=== PATIENT | female | born 1995 | race Asian ===

== ENCOUNTER 2017-03-17 10:15 | Emergency (ER) | payer OTHER ==
[~2017-03-17] VITALS: Ht 154.9 cm; Wt 54.4 kg
--- NOTE | 2017-03-17 10:55 | EKG ---
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
[2017-03-17 11:21] LABS: BASO % 0 % (0-3); EOS # 0.1 x10^3/uL (0.0-0.7); EOS % 1 % (0-3); HEMATOCRIT 39.8 % (36.0-47.0); HEMOGLOBIN 13.6 g/dL (12.0-15.5); LYMPH # 3.1 x10^3/uL (1.0-4.8); LYMPH % 33 % (24-48); MEAN CORPUSCULAR HEMOGLOBIN 30 pg (25-35); MEAN CORPUSCULAR HGB CONC 34 g/dL (31-37); MEAN CORPUSCULAR VOLUME 87 fL (79-100); MONO # 0.5 x10^3/uL (0.0-1.1); MONO % 6 % (0-9); NEUT # 5.6 x10^3uL (1.8-7.7); NEUT % 60 % (31-73); PLATELET COUNT 229 x10^3/uL (140-400); RED BLOOD COUNT 4.56 x10^6/uL (3.50-5.40); WHITE BLOOD COUNT 9.3 x10^3/uL (4.0-11.0)
[2017-03-17 11:42] LABS: ALBUMIN 3.7 g/dL (3.4-5.0); ALBUMIN/GLOBULIN RATIO 1.1 (1.0-1.7); CALCIUM 8.4 mg/dL (8.5-10.1); CREATININE 0.6 mg/dL (0.6-1.0); GFR 127.5; POTASSIUM 4.1 mmol/L (3.5-5.1); TOTAL BILIRUBIN 1.1 mg/dL (0.2-1.0); TOTAL PROTEIN 7.2 g/dL (6.4-8.2)
--- NOTE | 2017-03-17 12:00 | ED.ADGEN ---
Past History Past Medical History: Asthma Past Surgical History: No Surgical History Alcohol Use: Rarely Drug Use: None Adult General Chief Complaint Chief Complaint CHEST PAIN FOR 2 1/2 MONTHS HPI HPI Patient is a 21 year old F who presents with Chest pain. Pt states L sided sharp pain for 2 1/2 months and now worse for past 2 days. Some shortness of breath and using asthma inhaler more lately. Taking ASA for pain but still continues Pt denies abdominal pain, no leg pain or swelling. Pt states has had nonproductive cough, no hemoptysis. No F/C Review of Systems Review of Systems Constitutional: Denies fever or chills Eyes: Denies change in visual acuity, redness, or eye pain HENT: Denies nasal congestion or sore throat Respiratory: chest pain and shortness of breath Cardiovascular: chest pain, no syncope GI: Denies abdominal pain, nausea, vomiting, bloody stools or diarrhea : Denies dysuria or hematuria Musculoskeletal: Denies back pain or joint pain Integument: Denies rash or skin lesions Neurologic: Denies headache, focal weakness or sensory changes Current Medications Current Medications Current Medications Medications (Trade) Dose Ordered Sig/Elizabeth Start Time Stop Time Status Last Admin Dose Admin Iohexol (Omnipaque 300 Mg/ml) 75 ml 1X ONCE 03/17/17 12:30 03/17/17 12:31 DC 03/17/17 12:11 75 ML Ketorolac Tromethamine (Toradol) 30 mg 1X ONCE 03/17/17 13:15 03/17/17 13:16 DC 03/17/17 13:06 30 MG Allergies Allergies Allergies Coded Allergies Type Severity Reaction Last Updated Verified amoxicillin Allergy Unknown 06/22/16 Yes Physical Exam Physical Exam Constitutional: Well developed, well nourished, no acute distress, non-toxic appearance. HENT: Normocephalic, atraumatic, bilateral external ears normal, oropharynx moist, no oral exudates, nose normal. Eyes: PERRL, EOMI, conjunctiva normal, no discharge. Neck: Normal range of motion, no tenderness, supple, no stridor. Cardiovascular:Heart rate regular rhythm, no murmur Lungs & Thorax: Bilateral breath sounds clear to auscultation, reproducable tenderness to L chest and L upper back on palpation Abdomen: Bowel sounds normal, soft, no tenderness, no masses, no pulsatile masses. Skin: Warm, dry, no erythema, no rash. Back: No tenderness, no CVA tenderness. Extremities: No tenderness, no cyanosis, no clubbing, ROM intact, no edema. Neurologic: Alert and oriented X 3, normal motor function, normal sensory function, no focal deficits noted. Psychologic: Affect normal, judgement normal, mood normal. Current Patient Data Vital Signs Vital Signs Date Time Temp Pulse Resp B/P (MAP) Pulse Ox O2 Delivery O2 Flow Rate FiO2 03/17/17 13:15 76 102/61 (75) 03/17/17 10:24 98.2 16 100 Room Air Lab Results Laboratory Tests Test 03/17/17 11:07 White Blood Count 9.3 x10^3/uL (4.0-11.0) Red Blood Count 4.56 x10^6/uL (3.50-5.40) Hemoglobin 13.6 g/dL (12.0-15.5) Hematocrit 39.8 % (36.0-47.0) Mean Corpuscular Volume 87 fL (79-100) Mean Corpuscular Hemoglobin 30 pg (25-35) Mean Corpuscular Hemoglobin Concent 34 g/dL (31-37) Red Cell Distribution Width 13.0 % (11.5-14.5) Platelet Count 229 x10^3/uL (140-400) Neutrophils (%) (Auto) 60 % (31-73) Lymphocytes (%) (Auto) 33 % (24-48) Monocytes (%) (Auto) 6 % (0-9) Eosinophils (%) (Auto) 1 % (0-3) Basophils (%) (Auto) 0 % (0-3) Neutrophils # (Auto) 5.6 x10^3uL (1.8-7.7) Lymphocytes # (Auto) 3.1 x10^3/uL (1.0-4.8) Monocytes # (Auto) 0.5 x10^3/uL (0.0-1.1) Eosinophils # (Auto) 0.1 x10^3/uL (0.0-0.7) Basophils # (Auto) 0.0 x10^3/uL (0.0-0.2) D-Dimer (Nelsy) 2.93 mg/L (0.00-0.50) H Maternal Serum HCG Beta Subunit < 1 mIU/mL (0-6) Sodium Level 141 mmol/L (136-145) Potassium Level 4.1 mmol/L (3.5-5.1) Chloride Level 108 mmol/L (98-107) H Carbon Dioxide Level 24 mmol/L (21-32) Anion Gap 9 (6-14) Blood Urea Nitrogen 14 mg/dL (7-20) Creatinine 0.6 mg/dL (0.6-1.0) Estimated GFR (Cockcroft-Gault) 127.5 BUN/Creatinine Ratio 23 (6-20) H Glucose Level 90 mg/dL (70-99) Calcium Level 8.4 mg/dL (8.5-10.1) L Total Bilirubin 1.1 mg/dL (0.2-1.0) H Aspartate Amino Transferase (AST) 15 U/L (15-37) Alanine Aminotransferase (ALT) 13 U/L (14-59) L Alkaline Phosphatase 112 U/L (46-116) Creatine Kinase 71 U/L (26-192) Creatine Kinase MB (Mass) 0.5 ng/mL (0.0-3.6) Creatine Kinase MB Relative Index 0.7 % (0-4) Troponin I Quantitative < 0.017 ng/mL (0-0.055) Total Protein 7.2 g/dL (6.4-8.2) Albumin 3.7 g/dL (3.4-5.0) Albumin/Globulin Ratio 1.1 (1.0-1.7) EKG EKG NSR , rate 87, nonspecific ST T wave changes, no stemi, no acute ischemic changes Radiology/Procedures Radiology/Procedures Laboratory Tests Test 03/17/17 11:07 White Blood Count 9.3 x10^3/uL Red Blood Count 4.56 x10^6/uL Hemoglobin 13.6 g/dL Hematocrit 39.8 % Mean Corpuscular Volume 87 fL Mean Corpuscular Hemoglobin 30 pg Mean Corpuscular Hemoglobin Concent 34 g/dL Red Cell Distribution Width 13.0 % Platelet Count 229 x10^3/uL Neutrophils (%) (Auto) 60 % Lymphocytes (%) (Auto) 33 % Monocytes (%) (Auto) 6 % Eosinophils (%) (Auto) 1 % Basophils (%) (Auto) 0 % Neutrophils # (Auto) 5.6 x10^3uL Lymphocytes # (Auto) 3.1 x10^3/uL Monocytes # (Auto) 0.5 x10^3/uL Eosinophils # (Auto) 0.1 x10^3/uL Basophils # (Auto) 0.0 x10^3/uL D-Dimer (Nelsy) 2.93 mg/L Maternal Serum HCG Beta Subunit < 1 mIU/mL Sodium Level 141 mmol/L Potassium Level 4.1 mmol/L Chloride Level 108 mmol/L Carbon Dioxide Level 24 mmol/L Anion Gap 9 Blood Urea Nitrogen 14 mg/dL Creatinine 0.6 mg/dL Estimated GFR (Cockcroft-Gault) 127.5 BUN/Creatinine Ratio 23 Glucose Level 90 mg/dL Calcium Level 8.4 mg/dL Total Bilirubin 1.1 mg/dL Aspartate Amino Transf (AST/SGOT) 15 U/L Alanine Aminotransferase (ALT/SGPT) 13 U/L Alkaline Phosphatase 112 U/L Creatine Kinase 71 U/L Creatine Kinase MB (Mass) 0.5 ng/mL Creatine Kinase MB Relative Index 0.7 % Troponin I Quantitative < 0.017 ng/mL Total Protein 7.2 g/dL Albumin 3.7 g/dL Albumin/Globulin Ratio 1.1 [][place] [address] IMAGING REPORT Signed PATIENT: JIMENA WOODY ACCOUNT: [id number] : 1995 LOCATION: ER AGE: 21 SEX: F EXAM STATUS: REG ER ORD. PHYSICIAN: MAXIMILIANO ZENG MD REASON: CHEST PAIN R/O PE PROCEDURE: CT ANGIOGRAPHY CHEST CT Pulmonary arteriogram: Indication:Chest. Shortness of breath for 2 weeks Date of Exam:03/17/17 . Comparison:None available Technique: Contiguous helical acquisitions are obtained through the chest during intravenous administration of 75 cc Omnipaque 300 . Sagittal and Coronal MIP images were obtained and reviewed. Findings: The pulmonary arteries are negative for filling defects to suggest pulmonary emboli. No hilar or mediastinal abnormalities are noted. No pericardial pathology is noted and the aorta appears unremarkable. The lungs are clear without infiltrate or mass. The pleural surfaces are smooth and no pleural fluid is seen. The visualized structures of the upper abdomen are unremarkable. Bones are normal. Impression: 1. CT pulmonary arteriography fails to reveal pulmonary emboli or other significant pathology. PQRS Compliance Statement: One or more of the following individualized dose reduction techniques were utilized for this examination: 1. Automated exposure control 2. Adjustment of the mA and/or kV according to patient size 3. Use of iterative reconstruction technique DICTATED AND SIGNED BY: ALEJANDRA LIN MD DATE: 03/17/17 1222 CC: PANTERA HO; MAXIMILIANO ZENG MD ~ [place] [address] IMAGING REPORT Signed PATIENT: JIMENA WOODY ACCOUNT: [id number] : 1995 LOCATION: ER AGE: 21 SEX: F EXAM STATUS: REG ER ORD. PHYSICIAN: MAXIMILIANO ZENG MD REASON: chest pain PROCEDURE: CHEST PA & LATERAL Indication: Chest pain. Time of exam 11:32 AM No prior studies are available for comparison. FINDINGS: The heart size is normal. The lungs are clear. No pleural effusion or pneumothorax is identified. The pulmonary vascularity is normal. IMPRESSION: No acute abnormality detected. DICTATED AND SIGNED BY: BATSHEVA BOWERS MD DATE: 03/17/17 1243 CC: PANTERA HO; MAXIMILIANO ZENG MD ~ Impressions: NO PE, aorta ok Course & Med Decision Making Course & Med Decision Making Pertinent Labs and Imaging studies reviewed. (See chart for details) []Pt elevated Ddimer and obtained CT chest --no pe, no tenderness or swelling in legs Pt clinically tenderness chest wall and has been there for 2 1/2 months, no wheezing, EKG ok Discussed with pt to use NSAIDS for pain and follow up with PCP Final Impression Final Impression Chest Pain[] Problems: Dragon Disclaimer Dragon Disclaimer This electronic medical record was generated, in whole or in part, using a voice recognition dictation system. MAXIMILIANO ZENG MD March 17, 2017 12:00
[2017-03-17] MEDS ORDERED: IOHEXOL 300 MG/ML 75 ML VIAL. IV ONE (12:30)
--- NOTE | 2017-03-17 12:31 | RAD ---
CT Pulmonary arteriogram: Indication:Chest. Shortness of breath for 2 weeks Date of Exam:03/17/17 . Comparison:None available Technique: Contiguous helical acquisitions are obtained through the chest during intravenous administration of 75 cc Omnipaque 300 . Sagittal and Coronal MIP images were obtained and reviewed. Findings: The pulmonary arteries are negative for filling defects to suggest pulmonary emboli. No hilar or mediastinal abnormalities are noted. No pericardial pathology is noted and the aorta appears unremarkable. The lungs are clear without infiltrate or mass. The pleural surfaces are smooth and no pleural fluid is seen. The visualized structures of the upper abdomen are unremarkable. Bones are normal. Impression: 1. CT pulmonary arteriography fails to reveal pulmonary emboli or other significant pathology. PQRS Compliance Statement: One or more of the following individualized dose reduction techniques were utilized for this examination: 1. Automated exposure control 2. Adjustment of the mA and/or kV according to patient size 3. Use of iterative reconstruction technique
--- NOTE | 2017-03-17 12:46 | RAD ---
Indication: Chest pain. Time of exam 11:32 AM No prior studies are available for comparison. FINDINGS: The heart size is normal. The lungs are clear. No pleural effusion or pneumothorax is identified. The pulmonary vascularity is normal. IMPRESSION: No acute abnormality detected.
[2017-03-17 13:15] VITALS: BP 102/61
[2017-03-17] MEDS ORDERED: KETOROLAC 30 MG/ML VIAL. IV ONE (13:15)
== END 2017-03-17 13:23 | disposition home or self-care (01) ==
LOC: ER 10:15
DX: R07.89 Other chest pain (principal); R06.02 Shortness of breath; J45.909 Unspecified asthma, uncomplicated; Z88.1 Allergy status to other antibiotic agents
CPT/HCPCS: 36415; 71020; 71275; 80053; 82553; 84484; 84702; 85027; 85379; 93005; 96374; 99285; J1885; Q9967

== ENCOUNTER 2017-03-28 21:07 | Emergency (ER) | payer OTHER ==
[~2017-03-28] VITALS: Ht 154.9 cm; Wt 52.2 kg
--- NOTE | 2017-03-28 21:36 | EKG ---
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
--- NOTE | 2017-03-28 22:08 | ED.ADGEN ---
Past History Past Medical History: Asthma Past Surgical History: No Surgical History Alcohol Use: Occasionally Additional Alcohol Information: pt drank 2 wine coolers and 3 shots of [place] Drug Use: None Adult General HPI HPI Patient is a 21-year-old woman, with history of asthma, who presents to the emergency department with complaint of sudden onset of chest pain while eating pizza after having "a few drinks". Patient states that she was at home with her , took a few bites of pizza when she began feeling a stabbing chest pain on the left side of her chest. She denies any choking, coughing, or any inciting event other than swallowing. Patient states that she became short of breath, being hyperventilating, and experienced numbness and tingling in her hands. She states that she then took a few puffs of her inhaler, which did not help, that point EMS was called. Patient has experienced what she describes as the same chest pain previously. She states she's also been experiencing pain in the left side of her head, and her left arm in her left leg as well. Patient has been experiencing this chest pain intermittently over the past 2 and half months. She was seen in the emergency department on a eighth, at that time she received an evaluation including a CT of the chest which was negative for pulmonary embolus. Patient states that she followed up with her primary care provider last week, after a diagnosis of costochondritis was made, and was given additional medications by her primary care provider and referral for physical therapy. She states that the pain on her left side has been persistent , but denies any injuries, states pain is worse with motion both in the arm, leg , and in the chest. Also worse with deep inspiration. No recent travel or surgery, no history of DVT or PE in herself or family members, no swelling of the extremities. At this time she states she is feeling much better, the shortness of breath is fully resolved, as is the tingling, she denies any weakness, any headache, any nausea or vomiting, any urinary complaints. She is not taking any medication for pain today. Review of Systems Review of Systems Constitutional: Denies fever or chills [] Eyes: Denies change in visual acuity, redness, or eye pain [] HENT: Denies nasal congestion or sore throat [] Respiratory: Denies cough, complaining of shortness of breath associated with sharp left-sided chest pain. Also expressing pain in the left arm, left leg, and left side of her face. Cardiovascular: No additional information not addressed in HPI [] GI: Denies abdominal pain, nausea, vomiting, bloody stools or diarrhea [] : Denies dysuria or hematuria [] Musculoskeletal: Denies back pain or joint pain [] Integument: Denies rash or skin lesions [] Neurologic: Denies headache, focal weakness or sensory changes [] Endocrine: Denies polyuria or polydipsia [] Current Medications Current Medications Current Medications Medications (Trade) Dose Ordered Sig/Elizabeth Start Time Stop Time Status Last Admin Dose Admin Naproxen (Naprosyn) 500 mg 1X ONCE 03/28/17 22:15 03/28/17 22:17 DC 03/28/17 22:06 500 MG Allergies Allergies Allergies Coded Allergies Type Severity Reaction Last Updated Verified amoxicillin Allergy Unknown 06/22/16 Yes Physical Exam Physical Exam Constitutional: Well developed, well nourished, no acute distress, non-toxic appearance. [] HENT: Normocephalic, atraumatic, bilateral external ears normal, oropharynx moist, no oral exudates, nose normal. [] Eyes: PERRLA, EOMI, conjunctiva normal, no discharge. [] Neck: Normal range of motion, no tenderness, supple, no stridor. [] Cardiovascular:Heart rate regular rhythm, no murmur , S1, S2, no rubs or gallops. Mildly tachycardic. Patient with reproducible left-sided chest pain or pressure. No rashes or lesions identified. No signs of injury. [] Lungs & Thorax: Bilateral breath sounds clear to auscultation [] Abdomen: Bowel sounds normal, soft, no tenderness, no rebound, no rigidity, no guarding, no masses, no pulsatile masses. [] Skin: Warm, dry, no erythema, no rash. [] Back: No tenderness, no CVA tenderness. [] Extremities: Patient with mild tenderness palpation along the entire left arm and left leg, full range of motion, normal in appearance no cyanosis, no clubbing, ROM intact, no edema. Negative Homans sign. [] Neurologic: Alert and oriented X 3, normal motor function, normal sensory function, no focal deficits noted. [] Psychologic: Affect normal, judgement normal, mood normal. [] Current Patient Data Vital Signs Vital Signs Date Time Temp Pulse Resp B/P (MAP) Pulse Ox O2 Delivery O2 Flow Rate FiO2 03/28/17 23:00 97.5 105 18 100/57 (71) 99 Room Air Lab Results Laboratory Tests Test 03/28/17 21:39 POC Urine HCG, Qualitative hcg negative (Negative) EKG EKG EC: Sinus tachycardia, heart rate 109 bpm, contour normality is noted in the anterior septal leads, upright axis, QTC of 465, [place] 162, when compared to ECG from 8016, patient is tachycardic no other significant changes identified. As interpreted by me. [] Radiology/Procedures Radiology/Procedures Test x-ray: Two-view: PA and lateral: Normal cardiopulmonary silhouette, no infiltrates, no effusions, no pneumothorax, no soft tissue or bony abnormalities identified. As interpreted by me. [] Course & Med Decision Making Course & Med Decision Making Pertinent Labs and Imaging studies reviewed. (See chart for details) Patient clinically sober in the emergency department, states pain is resolved at this time except for with palpation of the chest, whereupon pain is reproducible. The soreness on the left side of her body is constant. Review of records reveals the patient was seen in the emergency department on March 17, at that time she received an extensive evaluation for this reported chest pain, per her description, including a CTA of the chest was negative for abnormalities. I did discuss this previous workup with patient and at bedside. This time the patient is feeling well, tachycardia is improving, and receiving several home puffs of her albuterol inhaler, oxygen saturation is 99- 100% on room air, respiratory rate is 18-22 and unlabored. As patient recently had an extensive workup for the same symptoms, I do not believe that repeating this workup would be appropriate at this time, patient and at bedside are agreeable with this approach. I did discuss the serial ECGs with Dr. Salmon of cardiology, aside from mild tachycardia, no other concerning findings identified, he recommends the patient be discharged home, to follow-up in the outpatient setting, his office will contact the patient on Friday to schedule an appointment for an echo as patient's symptoms have been persistent. As stated however the patient has not experienced any syncope, or other concerning symptoms that would prompt additional evaluation and admission hospital at this point. On reevaluation, patient is resting comfortably and remains pain-free, patient ambulated in the emergency department without issue. We did discuss concerning symptoms that prompt return to the emergency department, and importance of follow-up. Patient states she is agreeable with plan to follow-up with her primary care provider and to complete their recommendations for physical therapy, and also the plan to follow-up with cardiology for an outpatient echo. Patient discharged home in stable condition with her with plan as above. Final Impression Final Impression [] Problems: Dragon Disclaimer Dragon Disclaimer This electronic medical record was generated, in whole or in part, using a voice recognition dictation system. Departure: Impression: Primary Impression: Chest pain Disposition: HOME, SELF-CARE Condition: IMPROVED DINORA ARMENDARIZ DO March 28, 2017 22:08
[2017-03-28] MEDS ORDERED: NAPROXEN 500 MG TABLET PO ONE (22:15)
[2017-03-28 23:00] VITALS: BP 100/57
--- NOTE | 2017-03-29 08:03 | RAD ---
Indication: Chest pain since February. Asthma Technique: Two-view chest radiograph was obtained. Comparison is from March 17, 2017. Findings: The lungs are clear. The cardiopulmonary silhouette is within normal limits. There is no pleural effusion. The bony structures are intact. Impression: No acute thoracic findings.
--- NOTE | 2017-04-01 07:44 | EKG ---
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
== END 2017-03-28 23:00 | disposition home or self-care (01) ==
LOC: ER 21:07
DX: R07.89 Other chest pain (principal); R00.0 Tachycardia, unspecified; J45.909 Unspecified asthma, uncomplicated; R06.02 Shortness of breath; R20.2 Paresthesia of skin; R06.4 Hyperventilation; Z88.1 Allergy status to other antibiotic agents
CPT/HCPCS: 71020; 81025; 84703; 93005; 99284

== ENCOUNTER 2017-12-01 00:48 | Emergency (ER) | payer OTHER ==
[~2017-12-01] VITALS: Ht 154.9 cm; Wt 52.2 kg
--- NOTE | 2017-12-01 01:28 | PHYS DOC ---
Past History Past Medical History: Asthma Past Surgical History: No Surgical History Smoking: Non-smoker Alcohol Use: Occasionally Drug Use: None Adult General Chief Complaint Chief Complaint: FLANK PAIN [facility] HPI Patient is a pleasant 22-year-old non female with a normal last menstrual period presents with constipation and left lower quadrant abdominal pain began 2 days ago. Patient is noted decreased frequency and fullness in the left lower quadrant of her abdomen as got progressively worse. She's had no fevers no chills but did have recent strep throat was treated with azithromycin. Patient denies any prior history of nausea vomiting but is nauseated today secondary to the pain in the left lower quadrant. She denies any UTI symptoms, vaginal bleeding, discharge or back pain. She denies any hematuria or difficulty urinating she does admit that although she was thought to be constipated she did have a stool today that was described as soft. She still has persistent constant abdominal pain in the left lower quadrant that does not radiate anywhere and is not worsened by anything other than position. She has not taken any medications [id number] treat her symptoms patient denies any trauma or abuse at home. She further denies any sick contacts, travel outside the country or consumption of raw food handling of reptiles or poultry Review of Systems Review of Systems Constitutional: Denies fever or chills [] Eyes: Denies change in visual acuity, redness, or eye pain [] HENT: Denies nasal congestion or sore throat [] Respiratory: Denies cough or shortness of breath [] Cardiovascular: No additional information not addressed in HPI [] GI: Patient's main complaint is abdominal pain in the left lower quadrant with nausea without vomiting no bloody stools or diarrhea but actual constipation. : Denies dysuria or hematuria [] Musculoskeletal: Denies back pain or joint pain [] Integument: Denies rash or skin lesions [] Neurologic: Denies headache, focal weakness or sensory changes [] Endocrine: Denies polyuria or polydipsia [] All other systems were reviewed and found to be within normal limits, except as documented in this note. Allergies Allergies Allergies Coded Allergies Type Severity Reaction Last Updated Verified amoxicillin Allergy Intermediate 12/01/17 Yes cephalexin Allergy Intermediate 12/01/17 Yes Physical Exam Physical Exam Of the vital signs recorded on the chart at this time within normal limits Constitutional: Well developed, well nourished, no acute distress, non-toxic appearance. Patient is uncomfortable holding the left lower quadrant. [] HENT: Normocephalic, atraumatic, bilateral external ears normal, oropharynx moist, mild erythema noted no tonsillar hypertrophy no oral exudates, nose normal. [] Eyes: PERRLA, EOMI, conjunctiva normal, no discharge. [] Neck: Normal range of motion, no tenderness, supple, no stridor. No anterior lymphadenopathy noted [] Cardiovascular:Heart rate regular rhythm, no murmur [] Lungs & Thorax: Bilateral breath sounds clear to auscultation [] Abdomen: Patient does have tenderness to palpation in the left lower quadrant with no voluntary guarding rebound or organomegaly bowel sounds are normal no Castillo's or McBurney's point tenderness to palpation no external gallego to the abdominal wall. Skin: Warm, dry, no erythema, no rash. [] Back: No tenderness, no CVA tenderness. [] Extremities: full Range of motion normal gait Neurologic: Alert and oriented X 3, normal motor function, normal sensory function, no focal deficits noted. [] Psychologic: Affect normal, judgement normal, mood normal. [] Current Patient Data Vital Signs Vital Signs Date Time Temp Pulse Resp B/P (MAP) Pulse Ox O2 Delivery O2 Flow Rate FiO2 12/01/17 00:48 98.0 88 16 99 Room Air Lab Results Laboratory Tests Test 12/01/17 00:58 POC Urine HCG, Qualitative hcg negative (Negative) EKG EKG [] Radiology/Procedures Radiology/Procedures [] [address] [place] [id number] IMAGING REPORT Signed PATIENT: JIMENA WOODY ACCOUNT: [id number] : 1995 LOCATION: ER AGE: 22 SEX: F EXAM STATUS: REG ER ORD. PHYSICIAN: VERO FRENCH MD REASON: left lower quadrant abdominal pain PROCEDURE: CT ABD PELV W/ IV CONTRST ONLY PQRS Compliance Statement: One or more of the following individualized dose reduction techniques were utilized for this examination: 1. Automated exposure control 2. Adjustment of the mA and/or kV according to patient size 3. Use of iterative reconstruction technique CT ABD PELV W/ IV CONTRST ONLY Clinical Indication: LLQ abdominal pain and Nausea x 2 days, no history of any medical conditions or abdominal surgeries. Comparison: None. Technique: Helical CT imaging of the abdomen and pelvis is performed after 75 cc Omnipaque 300 IV contrast. Oral contrast not given. Findings: Lung bases clear. Liver, gallbladder, spleen, pancreas, adrenal glands, abdominal aorta, and kidneys are normal. Evaluation of bowel may be limited without oral contrast. Stomach unremarkable. No dilated small bowel. Colon is decompressed distally, limiting evaluation. No colon wall thickening is seen. The appendix is normal. No abdominal adenopathy or free fluid. Urinary bladder is normal. Uterus unremarkable. Small bilateral ovarian follicles. Trace pelvic free fluid is probably physiologic. No acute bone abnormality. IMPRESSION: No acute abdominal or pelvic abnormality. Electronically signed by: Siddhartha Tyson MD (12/01/2017 2:29 AM) [facility] DICTATED AND SIGNED BY: SIDDHARTHA TYSON MD DATE: 12/01/173 CC: VERO FRENCH MD; PANTERA HO ~ Course & Med Decision Making Course & Med Decision Making Pertinent Labs and Imaging studies reviewed. (See chart for details) []Patient presents with left lower quadrant abdominal pain and constipation she denies any documented fevers or chills but is having some nausea with her pain. On initial presentation patient is not her urine test is negative here urinalysis is pending. Patient will be given fluids antiemetics and pain medications and we will do a evaluation for diverticulitis as well as possible kidney stone versus pyelonephritis based on presentation. Doubt ovarian pathology but will continue to look for other signs of left lower quadrant abdominal pain could be related to her ovaries or perhaps a bowel obstruction. Patient's laboratory work as been reviewed by me time is now 3 AM urinalysis is essentially unremarkable although it has a few epithelial cells. White blood cells few bacteria she is not having UTI symptoms. Patient's CT abdomen pelvis is been reviewed by me read by radiology demonstrates no acute intra-abdominal pathology causing her symptoms. Patient's CBC and CMP unremarkable. Patient was rechecked by me she is resting quietly and comfortable on the cot her vital signs are stable. We reviewed all the laboratory work at this time and the CAT scan results. Laboratory Tests Test 12/01/17 00:50 12/01/17 00:58 12/01/17 01:28 Urine Collection Type Unknown Urine Color Yellow Urine Clarity Clear Urine pH 5.5 Urine Specific Jasper <=1.005 Urine Protein Neg (NEG-TRACE) Urine Glucose (UA) Neg mg/dL (NEG) Urine Ketones (Stick) Neg mg/dL (NEG) Urine Blood Trace (NEG) Urine Nitrite Neg (NEG) Urine Bilirubin Neg (NEG) Urine Urobilinogen Dipstick 0.2 mg/dL (0.2 mg/dL) Urine Leukocyte Esterase Trace (NEG) Urine RBC Occ /HPF (0-2) Urine WBC 1-4 /HPF (0-4) Urine Squamous Epithelial Cells Few /LPF Urine Bacteria Few /HPF (0-FEW) POC Urine HCG, Qualitative hcg negative (Negative) White Blood Count 9.9 x10^3/uL (4.0-11.0) Red Blood Count 4.61 x10^6/uL (3.50-5.40) Hemoglobin 13.7 g/dL (12.0-15.5) Hematocrit 39.5 % (36.0-47.0) Mean Corpuscular Volume 86 fL (79-100) Mean Corpuscular Hemoglobin 30 pg (25-35) Mean Corpuscular Hemoglobin Concent 35 g/dL (31-37) Red Cell Distribution Width 12.8 % (11.5-14.5) Platelet Count 287 x10^3/uL (140-400) Neutrophils (%) (Auto) 46 % (31-73) Lymphocytes (%) (Auto) 47 % (24-48) Monocytes (%) (Auto) 5 % (0-9) Eosinophils (%) (Auto) 1 % (0-3) Basophils (%) (Auto) 0 % (0-3) Neutrophils # (Auto) 4.6 x10^3uL (1.8-7.7) Lymphocytes # (Auto) 4.6 x10^3/uL (1.0-4.8) Monocytes # (Auto) 0.5 x10^3/uL (0.0-1.1) Eosinophils # (Auto) 0.1 x10^3/uL (0.0-0.7) Basophils # (Auto) 0.0 x10^3/uL (0.0-0.2) Sodium Level 139 mmol/L (136-145) Potassium Level 3.7 mmol/L (3.5-5.1) Chloride Level 105 mmol/L (98-107) Carbon Dioxide Level 23 mmol/L (21-32) Anion Gap 11 (6-14) Blood Urea Nitrogen 15 mg/dL (7-20) Creatinine 0.6 mg/dL (0.6-1.0) Estimated GFR (Cockcroft-Gault) 126.2 Glucose Level 87 mg/dL (70-99) Calcium Level 9.2 mg/dL (8.5-10.1) Total Bilirubin 0.7 mg/dL (0.2-1.0) Direct Bilirubin 0.2 mg/dL (0.0-0.2) Aspartate Amino Transferase (AST) 16 U/L (15-37) Alanine Aminotransferase (ALT) 14 U/L (14-59) Alkaline Phosphatase 102 U/L (46-116) Total Protein 7.9 g/dL (6.4-8.2) Albumin 4.0 g/dL (3.4-5.0) Lipase 88 U/L (73-393) Patient tells me that their symptoms given during CC are improved. We reviewed labs and radiology reports with patient at the bedside. Patient denied discussed follow-up with primary care doctor and continue management of her "" hard stool with fiber and medications. discharge: I've spoken with the patient and/or caregivers. I've explained the patient's condition, diagnosis and treatment plan based on information available to me at this time. I've answered the patient's and/or caregivers questions and addressed any concerns. The patient and/or caregivers have a good understanding the patient's diagnosis, condition and treatment plan as can be expected at this point. Vital signs have been stabilized. The patient's condition is stable for discharge from the emergency department. The patient will pursue further outpatient evaluation with her primary care provider or other designated consulting physician as outlined in the discharge instructions. Patient and/or caregivers are agreeable to this plan of care and follow-up instructions have been explained in detail. The patient and/or caregivers have received these instructions in written format and expressed understanding of these discharge instructions. The patient and her caregivers are aware that if any significant change in condition or worsening of symptoms should prompt him to immediately return to this of the closest emergency department. If an emergent department is not readily available I would encourage him to call 911. Reina Disclaimer Reina Disclaimer This electronic medical record was generated, in whole or in part, using a voice recognition dictation system. Departure Departure: Impression: Primary Impression: Abdominal pain Disposition: HOME, SELF-CARE Condition: STABLE Referrals: PANTERA HO (PCP) Patient Instructions: Abdominal Pain, Constipation, Adult Additional Instructions: discharge: I've spoken with the patient and/or caregivers. I've explained the patient's condition, diagnosis and treatment plan based on information available to me at this time. I've answered the patient's and/or caregivers questions and addressed any concerns. The patient and/or caregivers have a good understanding the patient's diagnosis, condition and treatment plan as can be expected at this point. Vital signs have been stabilized. The patient's condition is stable for discharge from the emergency department. The patient will pursue further outpatient evaluation with her primary care provider or other designated consulting physician as outlined in the discharge instructions. Patient and/or caregivers are agreeable to this plan of care and follow-up instructions have been explained in detail. The patient and/or caregivers have received these instructions in written format and expressed understanding of these discharge instructions. The patient and her caregivers are aware that if any significant change in condition or worsening of symptoms should prompt him to immediately return to this of the closest emergency department. If an emergent department is not readily available I would encourage him to call 911. Scripts Docusate Sodium (COLACE) 100 Mg Capsule 1 CAP PO BID, #30 CAP Prov: VERO FRENCH MD 12/01/17 Dicyclomine Hcl (BENTYL) 10 Mg Capsule 1 CAP PO TID, #15 CAP.EC Prov: VERO FRENCH MD 12/01/17 Prochlorperazine Maleate (Compazine) 10 Mg Tablet 10 MG PO TID for 5 Days, #15 TAB Prov: VERO FRENCH MD 12/01/17 VERO FRENCH MD Dec 01, 2017 01:28
[2017-12-01] MEDS ORDERED: 0.9 % SODIUM CHLORIDE 10 ML DISP.SYRIN. IV PRN (01:30)
[2017-12-01] MEDS ORDERED: CONTRAST GIVEN MC PRN (01:30)
[2017-12-01] MEDS ORDERED: IV NORMAL SALINE 1,000ML 1,000 ML IV SCH (01:30)
[2017-12-01] MEDS ORDERED: HYDROmorphone PF 1 MG/ML DISP.SYRIN IV/SQ PRN (01:30)
[2017-12-01] MEDS ORDERED: ONDANSETRON PF 4 MG/2 ML VIAL. IV ONE (01:45)
[2017-12-01] MEDS ORDERED: IOHEXOL 300 MG/ML 75 ML VIAL. IV ONE (01:45)
[2017-12-01] MEDS ORDERED: HYDROmorphone PF 2 MG/ML VIAL IV/SQ PRN (01:51)
[2017-12-01] MEDS ORDERED: HYDROmorphone PF 2 MG/ML VIAL IV ONE ×2 (02:00)
[2017-12-01 02:25] LABS: BASO % 0 % (0-3); EOS # 0.1 x10^3/uL (0.0-0.7); EOS % 1 % (0-3); HEMATOCRIT 39.5 % (36.0-47.0); HEMOGLOBIN 13.7 g/dL (12.0-15.5); LYMPH # 4.6 x10^3/uL (1.0-4.8); LYMPH % 47 % (24-48); MEAN CORPUSCULAR HEMOGLOBIN 30 pg (25-35); MEAN CORPUSCULAR HGB CONC 35 g/dL (31-37); MEAN CORPUSCULAR VOLUME 86 fL (79-100); MONO # 0.5 x10^3/uL (0.0-1.1); MONO % 5 % (0-9); NEUT # 4.6 x10^3uL (1.8-7.7); NEUT % 46 % (31-73); PLATELET COUNT 287 x10^3/uL (140-400); RED BLOOD COUNT 4.61 x10^6/uL (3.50-5.40); RED CELL DISTRIBUTION WIDTH 12.8 % (11.5-14.5); WHITE BLOOD COUNT 9.9 x10^3/uL (4.0-11.0)
[2017-12-01 02:29] LABS: BACTERIA,URINE FEW /HPF (0-FEW); BILIRUBIN,URINE NEG (NEG); CLARITY,URINE CLEAR; COLOR,URINE YELLOW; GLUCOSE,URINE NEG (NEG); NITRITE,URINE NEG (NEG); RBC,URINE OCC /HPF (0-2); UROBILINOGEN,URINE 0.2 mg/dL (0.2 mg/dL)
[2017-12-01 02:30] LABS: SQUAMOUS EPITHELIAL CELL,UR FEW /LPF
--- NOTE | 2017-12-01 02:33 | RAD ---
PQRS Compliance Statement: One or more of the following individualized dose reduction techniques were utilized for this examination: 1. Automated exposure control 2. Adjustment of the mA and/or kV according to patient size 3. Use of iterative reconstruction technique CT ABD PELV W/ IV CONTRST ONLY Clinical Indication: LLQ abdominal pain and Nausea x 2 days, no history of any medical conditions or abdominal surgeries. Comparison: None. Technique: Helical CT imaging of the abdomen and pelvis is performed after 75 cc Omnipaque 300 IV contrast. Oral contrast not given. Findings: Lung bases clear. Liver, gallbladder, spleen, pancreas, adrenal glands, abdominal aorta, and kidneys are normal. Evaluation of bowel may be limited without oral contrast. Stomach unremarkable. No dilated small bowel. Colon is decompressed distally, limiting evaluation. No colon wall thickening is seen. The appendix is normal. No abdominal adenopathy or free fluid. Urinary bladder is normal. Uterus unremarkable. Small bilateral ovarian follicles. Trace pelvic free fluid is probably physiologic. No acute bone abnormality. IMPRESSION: No acute abdominal or pelvic abnormality. Electronically signed by: Siddhartha Tyson MD (12/01/2017 2:29 AM) [facility]
[2017-12-01 02:38] LABS: CALCIUM 9.2 mg/dL (8.5-10.1); CREATININE 0.6 mg/dL (0.6-1.0); DIRECT BILIRUBIN 0.2 mg/dL (0.0-0.2); GFR 126.2; POTASSIUM 3.7 mmol/L (3.5-5.1); TOTAL BILIRUBIN 0.7 mg/dL (0.2-1.0); TOTAL PROTEIN 7.9 g/dL (6.4-8.2)
[2017-12-01 03:14] VITALS: BP 122/62
[2017-12-01] MEDS ORDERED: PROC10TA57 PO (03:16)
[2017-12-01] MEDS ORDERED: DICY10CA53 PO (03:16)
[2017-12-01] MEDS ORDERED: DOCU-109 PO (03:16)
== END 2017-12-01 03:16 | disposition home or self-care (01) ==
LOC: ER 00:48
DX: R10.32 Left lower quadrant pain (principal); K59.00 Constipation, unspecified; I10 Essential (primary) hypertension; J45.909 Unspecified asthma, uncomplicated; Z88.1 Allergy status to other antibiotic agents
CPT/HCPCS: 36415; 74177; 80048; 80076; 81001; 81025; 83690; 85025; 87086; 96361; 96374; 96375; 99285; J1170; J2405; Q9967; J7030

== ENCOUNTER 2018-06-04 10:54 | Emergency (ER) | payer OTHER ==
[~2018-06-04] VITALS: Ht 154.9 cm; Wt 52.2 kg
[~2018-06-04 10:54] MED LIST: DICY10CA53 PO; DOCU-109 PO; PROC10TA57 PO
[2018-06-04 11:03] VITALS: BP 108/56
[2018-06-04] MEDS ORDERED: SULF1TAB24 PO (11:47)
[2018-06-04] MEDS ORDERED: PHEN100T82 PO (11:47)
--- NOTE | 2018-06-04 11:47 | PHYS DOC ---
Past History Past Medical History: Asthma Past Surgical History: No Surgical History Smoking: Non-smoker Alcohol Use: Occasionally Drug Use: None Adult General Chief Complaint Chief Complaint: PAIN ON URINATION [facility] HPI 22-year-old male patient complaining of urinary frequency and dysuria since this morning with lower abdominal discomfort feeling. Patient denies fever, chills, nausea and vomiting, vaginal bleeding or discharge, . Patient states she had previous UTI with the same symptom. Review of Systems Review of Systems Constitutional: Denies fever or chills [] Eyes: Denies change in visual acuity, redness, or eye pain [] HENT: Denies nasal congestion or sore throat [] Respiratory: Denies cough or shortness of breath [] Cardiovascular: No additional information not addressed in HPI [] GI: Denies abdominal pain, nausea, vomiting, bloody stools or diarrhea [] : Reports dysuria Musculoskeletal: Denies back pain or joint pain [] Integument: Denies rash or skin lesions [] Neurologic: Denies headache, focal weakness or sensory changes [] Endocrine: Denies polyuria or polydipsia [] All other systems were reviewed and found to be within normal limits, except as documented in this note. Allergies Allergies Allergies Coded Allergies Type Severity Reaction Last Updated Verified amoxicillin Allergy Intermediate 12/01/17 Yes cephalexin Allergy Intermediate 12/01/17 Yes Physical Exam Physical Exam Constitutional: Well developed, well nourished, no acute distress, non-toxic appearance. [] HENT: Normocephalic, atraumatic, oropharynx moist, no oral exudates, nose normal. [] Eyes: PERRLA, EOMI, conjunctiva normal, no discharge. [] Neck: Normal range of motion, no tenderness, supple, no stridor. [] Cardiovascular:Heart rate regular rhythm, no murmur [] Lungs & Thorax: Bilateral breath sounds clear to auscultation [] Abdomen: Bowel sounds normal, soft, no tenderness, no masses, no pulsatile masses. [] Skin: Warm, dry, no erythema, no rash. [] Back: No tenderness, no CVA tenderness. [] Extremities: No tenderness, no cyanosis, no clubbing, ROM intact, no edema. [] Neurologic: Alert and oriented X 3, normal motor function, normal sensory function, no focal deficits noted. [] Psychologic: Affect normal, judgement normal, mood normal. [] Current Patient Data Vital Signs Vital Signs Date Time Temp Pulse Resp B/P (MAP) Pulse Ox O2 Delivery O2 Flow Rate FiO2 06/04/18 11:03 97.6 89 16 99 Room Air Lab Results Laboratory Tests Test 06/04/18 10:24 POC Urine HCG, Qualitative hcg negative (Negative) EKG EKG [] Radiology/Procedures Radiology/Procedures [] Course & Med Decision Making Course & Med Decision Making discharge: I've spoken with the patient and/or caregivers. I've explained the patient's condition, diagnosis and treatment plan based on information available to me at this time. I've answered the patient's and/or caregivers questions and addressed any concerns. The patient and/or caregivers have a good understanding the patient's diagnosis, condition and treatment plan as can be expected at this point. Vital signs have been stabilized. The patient's condition is stable for discharge from the emergency department. The patient will pursue further outpatient evaluation with her primary care provider or other designated consulting physician as outlined in the discharge instructions. Patient and/or caregivers are agreeable to this plan of care and follow-up instructions have been explained in detail. The patient and/or caregivers have received these instructions in written format and expressed understanding of these discharge instructions. The patient and her caregivers are aware that if any significant change in condition or worsening of symptoms should prompt him to immediately return to this of the closest emergency department. If an emergent department is not readily available I would encourage him to call 911. Dragon Disclaimer Dragon Disclaimer This electronic medical record was generated, in whole or in part, using a voice recognition dictation system. Departure Departure: Impression: Primary Impression: Urinary tract infection Disposition: HOME, SELF-CARE (@ 1143) Condition: STABLE Referrals: PANTERA HO (PCP) Patient Instructions: Urinary Tract Infection Additional Instructions: Drink plenty of liquids Follow-up with your primary care physician in 3-5 days Return to ER if not getting better Scripts Phenazopyridine Hcl (PYRIDIUM) 100 Mg Tablet 100 MG PO BID PRN for PAIN, #10 TAB Prov: VIRIDIANA GATES MD 06/04/18 Sulfamethoxazole/Trimethoprim (BACTRIM DS TABLET) 1 Each Tablet 1 TAB PO BID, #14 TAB Prov: VIRIDIANA GATES MD 06/04/18 VIRIDIANA GATES MD Jun 04, 2018 11:47
[2018-06-04 11:51] LABS: BILIRUBIN,URINE NEG (NEG); CLARITY,URINE CLOUDY; COLOR,URINE STRAW
[2018-06-04 11:52] LABS: BACTERIA,URINE 0 /HPF (0-FEW); GLUCOSE,URINE NEG (NEG); NITRITE,URINE NEG (NEG); SQUAMOUS EPITHELIAL CELL,UR OCC /LPF; UROBILINOGEN,URINE 0.2 mg/dL (0.2 mg/dL)
== END 2018-06-04 11:58 | disposition home or self-care (01) ==
LOC: ER 10:54
DX: N39.0 Urinary tract infection, site not specified (principal); J45.909 Unspecified asthma, uncomplicated; Z88.1 Allergy status to other antibiotic agents
CPT/HCPCS: 81001; 81025; 87086; 99284

== ENCOUNTER 2018-11-21 16:09 | Emergency (ER) | payer OTHER ==
[~2018-11-21] VITALS: Ht 154.9 cm; Wt 53.0 kg
[~2018-11-21 16:09] MED LIST changes: +PHEN100T82 PO; +SULF1TAB24 PO
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
[2018-11-21 17:17] LABS: ALBUMIN 4.2 g/dL (3.4-5.0); ALBUMIN/GLOBULIN RATIO 1.1 (1.0-1.7); CALCIUM 8.9 mg/dL (8.5-10.1); CREATININE 0.6 mg/dL (0.6-1.0); GFR 126.2; POTASSIUM 3.6 mmol/L (3.5-5.1)
[2018-11-21 17:18] LABS: BASO % 0 % (0-3); EOS % 0 % (0-3); HEMATOCRIT 42.7 % (36.0-47.0); HEMOGLOBIN 14.6 g/dL (12.0-15.5); LYMPH # 1.3 x10^3/uL (1.0-4.8); LYMPH % 14 % (24-48); MEAN CORPUSCULAR HEMOGLOBIN 30 pg (25-35); MEAN CORPUSCULAR HGB CONC 34 g/dL (31-37); MEAN CORPUSCULAR VOLUME 88 fL (79-100); MONO # 0.7 x10^3/uL (0.0-1.1); MONO % 8 % (0-9); NEUT % 78 % (31-73); PLATELET COUNT 232 x10^3/uL (140-400); RED BLOOD COUNT 4.83 x10^6/uL (3.50-5.40); RED CELL DISTRIBUTION WIDTH 13.1 % (11.5-14.5); WHITE BLOOD COUNT 8.9 x10^3/uL (4.0-11.0)
[2018-11-21] MEDS ORDERED: ACETAMINOPHEN 500 MG TABLET PO ONE (17:20)
[2018-11-21 17:35] LABS: BILIRUBIN,URINE NEG (NEG); CLARITY,URINE CLEAR; COLOR,URINE YELLOW; GLUCOSE,URINE NEG (NEG)
[2018-11-21 17:36] LABS: BACTERIA,URINE FEW /HPF (0-FEW); NITRITE,URINE NEG (NEG); RBC,URINE 0 /HPF (0-2); SQUAMOUS EPITHELIAL CELL,UR OCC /LPF; UROBILINOGEN,URINE 0.2 mg/dL (0.2 mg/dL)
[2018-11-21] MEDS ORDERED: IV DEXTROSE 5% - 0.9 % NACL 1,000 ML IV ONE (18:00)
[2018-11-21] MEDS ORDERED: CYCL-331 PO (18:01)
[2018-11-21] MEDS ORDERED: NITR100C62 PO (18:01)
[2018-11-21] MEDS ORDERED: NITROFURANTOIN MONOHYD/M-CRYST 100 MG CAPSULE. PO ONE (18:30)
[2018-11-21] MEDS ORDERED: ONDANSETRON PF 4 MG/2 ML VIAL. IV ONE (18:30)
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
[2018-11-21 20:00] VITALS: BP 107/50
== END 2018-11-21 20:04 | disposition home or self-care (01) ==
LOC: ER 16:09
DX: O9A.211 Injury, poisoning and certain other consequences of external causes complicating pregnancy, first trimester (principal); S50.12XA Contusion of left forearm, initial encounter; S50.11XA Contusion of right forearm, initial encounter; O23.41 Unspecified infection of urinary tract in pregnancy, first trimester; R82.4 Acetonuria; M54.5 Low back pain; R10.9 Unspecified abdominal pain; O99.511 Diseases of the respiratory system complicating pregnancy, first trimester; J45.909 Unspecified asthma, uncomplicated; Z3A.01 Less than 8 weeks gestation of pregnancy; Z88.1 Allergy status to other antibiotic agents; V47.5XXA Car driver injured in collision with fixed or stationary object in traffic accident, initial encounter; Y93.I9 Activity, other involving external motion; Y92.89 Other specified places as the place of occurrence of the external cause; Y99.8 Other external cause status
CPT/HCPCS: 36415; 76801; 76817; 80053; 81001; 81025; 84702; 85025; 87086; 96374; 99284; J2405; J7042

== ENCOUNTER 2018-11-26 09:45 | Emergency (ER) | payer OTHER ==
[~2018-11-26] VITALS: Ht 154.9 cm; Wt 54.9 kg
[~2018-11-26 09:45] MED LIST changes: +CYCL-331 PO; +NITR100C62 PO
[2018-11-26 10:19] LABS: BASO % 0 % (0-3); EOS # 0.1 x10^3/uL (0.0-0.7); EOS % 1 % (0-3); HEMATOCRIT 40.1 % (36.0-47.0); HEMOGLOBIN 13.8 g/dL (12.0-15.5); LYMPH # 1.9 x10^3/uL (1.0-4.8); LYMPH % 15 % (24-48); MEAN CORPUSCULAR HEMOGLOBIN 30 pg (25-35); MEAN CORPUSCULAR HGB CONC 34 g/dL (31-37); MEAN CORPUSCULAR VOLUME 87 fL (79-100); MONO % 8 % (0-9); NEUT # 9.4 x10^3uL (1.8-7.7); NEUT % 76 % (31-73); PLATELET COUNT 278 x10^3/uL (140-400); RED BLOOD COUNT 4.62 x10^6/uL (3.50-5.40); RED CELL DISTRIBUTION WIDTH 12.8 % (11.5-14.5); WHITE BLOOD COUNT 12.4 x10^3/uL (4.0-11.0)
[2018-11-26 10:44] LABS: BACTERIA,URINE 0 /HPF (0-FEW); BILIRUBIN,URINE NEG (NEG); CLARITY,URINE CLEAR; COLOR,URINE YELLOW; GLUCOSE,URINE NEG (NEG); NITRITE,URINE NEG (NEG); RBC,URINE RARE /HPF (0-2); SQUAMOUS EPITHELIAL CELL,UR FEW /LPF; UROBILINOGEN,URINE 0.2 mg/dL (0.2 mg/dL); WBC,URINE OCC /HPF (0-4)
[2018-11-26 11:24] VITALS: BP 98/56
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
--- NOTE | 2018-11-26 12:33 | RAD ---
Obstetrical ultrasound, 11/26/2018: HISTORY: , spotting, bleeding Transabdominal and transvaginal scans were obtained. The uterus contains a fluid collection measuring 11 mm in mean diameter. This presumed gestational sac demonstrates somewhat irregular margins. It has increased in size since 11/21/2018 at which time it measured 5 mm. Its current size suggests a gestational age of 5 weeks and 6 days yielding a sonographic EDC of 07/23/2019. There is a tiny echogenic structure within this fluid collection, possibly a yolk sac. No definite pole was identified. There is a smaller 5 mm fluid collection adjacent to this presumed gestational sac as well as other echogenic material in the central uterine cavity. This small fluid collection probably represents a small subchorionic hemorrhage. A twin is less likely. The ovaries are of normal size. No adnexal mass is seen. No free fluid is evident in the pelvis. IMPRESSION: 1. Intrauterine gestation sac of a size suggesting a gestational age of approximately 6 weeks. The margins of the sac are somewhat irregular raising questions as to its viability. Sonographic follow-up and serial hCG titers are suggested. 2. Probable small subchorionic hemorrhage. 3. No adnexal abnormality is detected. Electronically signed by: Fredi Alston MD (11/26/2018 12:29 PM) [facility]
== END 2018-11-26 12:05 | disposition home or self-care (01) ==
LOC: ER 09:45
DX: O20.0 Threatened abortion (principal); Z3A.01 Less than 8 weeks gestation of pregnancy; Z88.1 Allergy status to other antibiotic agents
CPT/HCPCS: 36415; 76801; 76817; 81001; 84702; 85025; 86901; 99284-25

== ENCOUNTER 2019-11-03 18:28 | Emergency (ER) | payer OTHER ==
[~2019-11-03] VITALS: Ht 154.9 cm; Wt 52.2 kg
[2019-11-03] MEDS ORDERED: LOPERAMIDE 2 MG CAPSULE PO ONE (19:00)
[2019-11-03] MEDS ORDERED: ONDANSETRON PF 4 MG/2 ML VIAL. IVP ONE (19:00)
[2019-11-03] MEDS ORDERED: IV NORMAL SALINE 1,000ML 1,000 ML IV ONE (19:00)
--- NOTE | 2019-11-03 19:22 | PHYS DOC ---
Past History Past Medical History: Asthma Past Surgical History: Other Additional Past Surgical Histo: Left Carpal Tunnel release , D&C Smoking: Non-smoker Alcohol Use: Rarely Drug Use: None Adult General Chief Complaint Chief Complaint: NAUSEA/VOMITING/DIARRHEA HPI HPI 23-year-old female presents with nausea, vomiting and diarrhea. She has had for 5 episodes of vomiting and she lost count of the number of times that diarrhea today. She was feeling a little bit ill yesterday, but this really started at 4 AM this morning. She denies fever or chills. She is concerned about dehydration and doesn't know what to do to slow things down. She has no other complaints this time. Review of Systems Review of Systems Constitutional: Denies fever or chills [] Eyes: Denies change in visual acuity, redness, or eye pain [] HENT: Denies nasal congestion or sore throat [] Respiratory: Denies cough or shortness of breath [] Cardiovascular: No additional information not addressed in HPI [] GI: nausea, vomiting, diarrhea [] : Denies dysuria or hematuria [] Musculoskeletal: Denies back pain or joint pain [] Integument: Denies rash or skin lesions [] Neurologic: Denies headache, focal weakness or sensory changes [] Endocrine: Denies polyuria or polydipsia [] All other systems were reviewed and found to be within normal limits, except as documented in this note. Current Medications Current Medications Current Medications Medications (Trade) Dose Ordered Sig/Elizabeth Start Time Stop Time Status Last Admin Dose Admin Loperamide HCl (Imodium) 4 mg 1X ONCE 11/03/19 19:00 11/03/19 19:02 DC Ondansetron HCl (Zofran) 4 mg 1X ONCE 11/03/19 19:00 11/03/19 19:02 DC Sodium Chloride 1,000 ml @ 1,000 mls/hr 1X ONCE 11/03/19 19:00 11/03/19 19:59 Allergies Allergies Allergies Coded Allergies Type Severity Reaction Last Updated Verified amoxicillin Allergy Intermediate 12/01/17 Yes cephalexin Allergy Intermediate 12/01/17 Yes Physical Exam Physical Exam Constitutional: Well developed, well nourished, no acute distress, non-toxic appearance. [] HENT: Normocephalic, atraumatic, bilateral external ears normal, oropharynx moist, no oral exudates, nose normal. [] Eyes: PERRLA, EOMI, conjunctiva normal, no discharge. [] Neck: Normal range of motion, no tenderness, supple, no stridor. [] Cardiovascular:Heart rate regular rhythm, no murmur [] Lungs & Thorax: Bilateral breath sounds clear to auscultation [] Abdomen: Bowel sounds normal, soft, mild general tenderness, no masses, no puls atile masses. [] Skin: Warm, dry, no erythema, no rash. [] Back: No tenderness, no CVA tenderness. [] Extremities: No tenderness, no cyanosis, no clubbing, ROM intact, no edema. [] Neurologic: Alert and oriented X 3, normal motor function, normal sensory function, no focal deficits noted. [] Psychologic: Affect normal, judgement normal, mood normal. [] Current Patient Data Vital Signs Vital Signs Date Time Temp Pulse Resp B/P (MAP) Pulse Ox O2 Delivery O2 Flow Rate FiO2 11/03/19 18:35 98.8 102 20 100 Room Air EKG EKG [] Radiology/Procedures Radiology/Procedures [] Course & Med Decision Making Course & Med Decision Making Pertinent Labs and Imaging studies reviewed. (See chart for details) The patient was given 4 mg of Zofran, 4 mg loperamide, and a liter bolus saline. Her labs are unremarkable. Her urinalysis is negative for infection. I believe the patient has a viral gastroenteritis. I will discharge her with Zofran prescription. By mouth challenge is pending. The patient was able to keep down fluids. She still has some nausea so I will give her an additional 10 mg of Compazine before she leaves. She is stable for discharge at this time. [] Dragon Disclaimer Dragon Disclaimer This electronic medical record was generated, in whole or in part, using a voice recognition dictation system. Departure Departure: Impression: Primary Impression: Nausea & vomiting Additional Impression: Diarrhea Disposition: 01 HOME, SELF-CARE Condition: IMPROVED Referrals: PANTERA HO (PCP) Patient Instructions: Diarrhea, [id number], Nausea and Vomiting, [id number] Scripts Ondansetron (ONDANSETRON ODT) 4 Mg Tab.rapdis 1 TAB PO PRN Q6-8HRS PRN for VOMITING, #16 TAB Prov: VICK ESPINAL DO 11/03/19 Problem Qualifiers Primary Impression: Nausea & vomiting Vomiting type: unspecified Vomiting Intractability: intractable Qualified Codes: R11.2 - Nausea with vomiting, unspecified Additional Impression: Diarrhea Diarrhea type: unspecified type Qualified Codes: R19.7 - Diarrhea, unspecified VICK ESPINAL DO Nov 03, 2019 19:21
[2019-11-03 19:40] LABS: BASO % 0 % (0-3); EOS # 0.1 x10^3/uL (0.0-0.7); EOS % 1 % (0-3); HEMATOCRIT 47.4 % (36.0-47.0); HEMOGLOBIN 15.8 g/dL (12.0-15.5); LYMPH # 1.7 x10^3/uL (1.0-4.8); LYMPH % 16 % (24-48); MEAN CORPUSCULAR HEMOGLOBIN 29 pg (25-35); MEAN CORPUSCULAR HGB CONC 33 g/dL (31-37); MEAN CORPUSCULAR VOLUME 87 fL (79-100); MONO # 0.7 x10^3/uL (0.0-1.1); MONO % 6 % (0-9); NEUT # 8.5 x10^3uL (1.8-7.7); NEUT % 77 % (31-73); PLATELET COUNT 242 x10^3/uL (140-400); RED BLOOD COUNT 5.47 x10^6/uL (3.50-5.40); RED CELL DISTRIBUTION WIDTH 14.6 % (11.5-14.5)
[2019-11-03 19:42] LABS: CALCIUM 8.9 mg/dL (8.5-10.1); CREATININE 0.6 mg/dL (0.6-1.0); POTASSIUM 3.4 mmol/L (3.5-5.1)
[2019-11-03 19:49] LABS: ALBUMIN 4.3 g/dL (3.4-5.0); TOTAL BILIRUBIN 2.1 mg/dL (0.2-1.0); TOTAL PROTEIN 8.6 g/dL (6.4-8.2)
[2019-11-03 19:54] LABS: BACTERIA,URINE 0 /HPF (0-FEW); BILIRUBIN,URINE NEG (NEG); CLARITY,URINE CLEAR; COLOR,URINE YELLOW; GLUCOSE,URINE NEG (NEG); NITRITE,URINE NEG (NEG); SQUAMOUS EPITHELIAL CELL,UR FEW /LPF; UROBILINOGEN,URINE 0.2 mg/dL (0.2 mg/dL); WBC,URINE OCC /HPF (0-4)
[2019-11-03] MEDS ORDERED: ONDA4TAB12 PO (20:04)
[2019-11-03 20:06] VITALS: BP 98/68
[2019-11-03] MEDS ORDERED: PROCHLORPERAZINE 10 MG/2 ML VIAL. IV ONE (20:30)
== END 2019-11-03 20:40 | disposition home or self-care (01) ==
LOC: ER 18:28
DX: R11.2 Nausea with vomiting, unspecified (principal); R19.7 Diarrhea, unspecified; J45.909 Unspecified asthma, uncomplicated; Z88.1 Allergy status to other antibiotic agents
CPT/HCPCS: 36415; 80053; 81001; 85025; 96361; 96374; 96375; 99284; J0780; J2405; J7030

== ENCOUNTER 2020-03-28 17:50 | Emergency (ER) | payer OTHER ==
[~2020-03-28] VITALS: Ht 154.9 cm; Wt 53.0 kg
[~2020-03-28 17:50] MED LIST changes: +ONDA4TAB12 PO
[2020-03-28 17:55] VITALS: BP 106/66
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
--- NOTE | 2020-03-28 19:11 | PHYS DOC ---
Past History Past Medical History: Asthma Past Surgical History: Other Additional Past Surgical Histo: Left Carpal Tunnel release , D&C Smoking: Non-smoker Alcohol Use: Rarely Drug Use: None General Adult EDM: Chief Complaint: HEAD INJURY/TRAUMA HPI: HPI: Patient is a 24-year-old female who presents with complaint of 5-day history of headaches since falling and hitting her head 5 days ago. Patient states that sh e had slipped and fell backwards, hitting the back of her head. She denies having had loss of consciousness but has been having headaches ever since and has had some difficulty with gathering her thoughts. She has had one episode of vomiting at the very beginning but no further vomiting. She rates her headache at a 5 out of 10. [] Review of Systems: Review of Systems: Constitutional: Denies fever or chills Respiratory: Denies cough or shortness of breath Cardiovascular: Denies chest pain or edema Integument: Denies rash Neurologic: Complains of headache without focal weakness or sensory changes Heart Score: Risk Factors: Risk Factors: DM, Current or recent (<one month) smoker, HTN, HLP, family history of CAD, obesity. Risk Scores: Score 0 - 3: 2.5% MACE over next 6 weeks - Discharge Home Score 4 - 6: 20.3% MACE over next 6 weeks - Admit for Clinical Observation Score 7 - 10: 72.7% MACE over next 6 weeks - Early Invasive Strategies Allergies: Allergies: Allergies Coded Allergies Type Severity Reaction Last Updated Verified amoxicillin Allergy Intermediate 12/01/17 Yes cephalexin Allergy Intermediate 12/01/17 Yes Physical Exam: PE: Constitutional: Well developed, well nourished, no acute distress, non-toxic appearance. [] HENT: Normocephalic, atraumatic, bilateral external ears normal, oropharynx moist, no oral exudates, nose normal. [] Eyes: PERRLA, EOMI, conjunctiva normal, no discharge. [] Neck: Normal range of motion, no tenderness, supple, no stridor. [] Cardiovascular:Heart rate regular rhythm, no murmur [] Lungs & Thorax: Bilateral breath sounds clear to auscultation [] Neurologic: Alert and oriented X 3, no focal deficits noted. [] Current Patient Data: Vital Signs: Vital Signs Date Time Temp Pulse Resp B/P (MAP) Pulse Ox O2 Delivery O2 Flow Rate FiO2 5/19/20 17:55 98.1 92 16 106/66 (79) 100 Room Air EKG: EKG: [] Radiology/Procedures: Radiology/Procedures: [] Impressions: PROCEDURE: CT HEAD WO CONTRAST CT HEAD WO CONTRAST Clinical indications: Head injury on Tuesday, March 24, 2020. Head pain of the posterior right side of the head. COMPARISON: None available. Technique: Noncontrast axial cross sectional scanning of the head was performed. PQRS compliance Statement One or more of the following individualized dose reduction techniques were utilized for this study: 1. Automated exposure control 2. Adjustment of the mA and/or kV according to patient size 3. Use of iterative reconstruction technique Findings: No acute intracranial hemorrhage or midline shift or mass-effect or hydrocephalus or extra-axial fluid collection is seen. No focal hypodense area or sulci effacement is seen to indicate an acute infarct or edema radiographically. No skull fracture or pneumocephalus is seen. No opacification of the mastoid sinuses or the middle ear cavities or the paranasal sinuses is seen. The maxillary sinuses are not completely seen in this study. Impression: No acute intracranial abnormality is seen. Electronically signed by: Mann Desai MD (03/28/2020 6:49 PM) [facility] – [place] Course & Med Decision Making: Course & Med Decision Making Pertinent Labs and Imaging studies reviewed. (See chart for details) [] Dragon Disclaimer: Dragon Disclaimer: This electronic medical record was generated, in whole or in part, using a voice recognition dictation system. Departure Departure: Impression: Primary Impression: Closed head injury Qualified Codes: S09.90XA - Unspecified injury of head, initial encounter Disposition: HOME/RESIDENCE PRIOR TO ADM Condition: STABLE Referrals: PANTERA HO (PCP) Patient Instructions: Concussion and Brain Injury, Head Injury, Adult ANNAMARIA STANTON Jr. DO March 28, 2020 19:11
== END 2020-03-28 19:15 | disposition home or self-care (01) ==
LOC: ER 17:50
DX: S09.8XXA Other specified injuries of head, initial encounter (principal); J45.909 Unspecified asthma, uncomplicated; Z88.1 Allergy status to other antibiotic agents; W01.0XXA Fall on same level from slipping, tripping and stumbling without subsequent striking against object, initial encounter; Y93.89 Activity, other specified; Y92.89 Other specified places as the place of occurrence of the external cause; Y99.8 Other external cause status
CPT/HCPCS: 70450; 99284

== ENCOUNTER 2020-10-17 23:10 | Emergency (ER) | payer OTHER ==
[~2020-10-17] VITALS: Ht 154.9 cm; Wt 52.5 kg
[2020-10-17 23:10] VITALS: BP 106/73
[2020-10-18 00:01] LABS: CLARITY,URINE CLEAR; COLOR,URINE PINK
[2020-10-18 00:02] LABS: BACTERIA,URINE MANY /HPF (0-FEW); SQUAMOUS EPITHELIAL CELL,UR OCC /LPF; WBC,URINE >40 /HPF (0-4)
[2020-10-18] MEDS ORDERED: PHEN-318 PO (00:09)
[2020-10-18] MEDS ORDERED: SULF1TAB24 PO (00:09)
--- NOTE | 2020-10-18 00:10 | PHYS DOC ---
Past History Past Medical History: Asthma Past Surgical History: Other Additional Past Surgical Histo: Left Carpal Tunnel release , D&C Smoking: Non-smoker Alcohol Use: Rarely Drug Use: None General Adult EDM: Chief Complaint: URINARY FREQUENCY HPI: HPI: 24 year old female presents with report of suprapubic pain and dysuria which started last night. Denies fever/chills. Denies trauma. Denies nausea or vomiting. Review of Systems: Review of Systems: Constitutional: Denies fever or chills Eyes: Denies change in visual acuity, redness, or eye pain HENT: Denies nasal congestion or sore throat Respiratory: Denies cough or shortness of breath Cardiovascular: Denies chest pain or palpitations GI: Reports suprapubic abdominal pain; denies nausea, vomiting, or diarrhea : Denies hematuria; reports dysuria Musculoskeletal: Denies back pain or joint pain Integument: Denies rash or skin lesions Neurologic: Denies headache, focal weakness or sensory changes Complete systems were reviewed and found to be within normal limits, except as documented in this note. Allergies: Allergies: Allergies Coded Allergies Type Severity Reaction Last Updated Verified amoxicillin Allergy Intermediate 12/01/17 Yes cephalexin Allergy Intermediate 12/01/17 Yes Physical Exam: PE: Constitutional: Well developed, well nourished, no acute distress, non-toxic appearance HENT: Normocephalic, atraumatic Eyes: Conjunctiva normal, no discharge Neck: Normal range of motion, no tenderness, supple Lungs & Thorax: Equal chest rise and fall, no respiratory distress Abdomen: Soft, suprapubic tenderness, no guarding/rebound tenderness/distention Skin: Warm, dry, no erythema, no rash Back: No tenderness, no CVA tenderness Extremities: No tenderness, ROM intact, no edema Neurologic: Alert and oriented X 3, no focal deficits noted Psychologic: Affect normal, judgement normal Current Patient Data: Labs: Laboratory Tests Test 10/17/20 23:20 10/17/20 23:30 Urine Collection Type Unknown Urine Color [place] Urine Clarity Clear Urine pH Urine Specific [place] Urine Protein (NEG-TRACE) Urine Glucose (UA) mg/dL (NEG) Urine Ketones (Stick) mg/dL (NEG) Urine Blood (NEG) Urine Nitrite (NEG) Urine Bilirubin (NEG) Urine Urobilinogen Dipstick mg/dL (0.2 mg/dL) Urine Leukocyte Esterase (NEG) Urine RBC 6-10 /HPF (0-2) Urine WBC >40 /HPF (0-4) Urine Squamous Epithelial Cells Occ /LPF Urine Bacteria Many /HPF (0-FEW) POC Urine HCG, Qualitative hcg negative (Negative) EKG: EKG: [] Radiology/Procedures: Radiology/Procedures: [] Course & Med Decision Making: Course & Med Decision Making Pertinent Lab studies reviewed. (See chart for details) Patient presents with HPI and physical exam concerning for UTI. UA with signifi cant signs of infection. Empiric antibiotic initiated. Pyridium provided for symptomatic treatment. Patient stable for discharge home with outpatient follow-up with PCP. Discussed findings and plan with patient, who acknowledges understanding and agreement. Reina Disclaimer: Reina Disclaimer: This electronic medical record was generated, in whole or in part, using a voice recognition dictation system. Departure Departure: Impression: Primary Impression: Urinary tract infection Qualified Codes: N30.01 - Acute cystitis with hematuria Disposition: HOME SELF CARE/HOMELESS Condition: STABLE Referrals: PANTERA HO (PCP) Patient Instructions: Urinary Tract Infection, [id number] Scripts Ondansetron (ONDANSETRON ODT) 4 Mg Tab.rapdis 1 TAB PO PRN Q6-8HRS PRN for NAUSEA, #16 TAB Prov: ZIGGY RIVERS DO 10/18/20 Sulfamethoxazole/Trimethoprim (BACTRIM DS TABLET) 1 Each Tablet 1 TAB PO BID for UTI for 7 Days, #14 TAB 0 Refills Prov: ZIGGY RIVERS DO 10/18/20 Phenazopyridine Hcl (PYRIDIUM) 200 Mg Tablet 200 MG PO TID for urinary tract infection, #6 TAB Prov: ZIGGY RIVERS DO 10/18/20 ZIGGY RIVERS DO Oct 18, 2020 00:10
[2020-10-18] MEDS ORDERED: ONDA4TAB12 PO (00:21)
[2020-10-18] MEDS: SMZ/TMP 800/160MG TABLET. PO ONE (01:17)
[2020-10-18] MEDS: PHENAZOPYRIDINE 200 MG TABLET. PO ONE (01:17)
== END 2020-10-18 01:20 | disposition home or self-care (01) ==
LOC: ER 23:10
DX: N30.01 Acute cystitis with hematuria (principal); J45.909 Unspecified asthma, uncomplicated; Z88.1 Allergy status to other antibiotic agents
CPT/HCPCS: 81001; 81025; 87086; 99283